=== PATIENT | female | born 1995 | race Two or more races ===

== ENCOUNTER 2018-07-05 03:14 | Inpatient (IN) | payer OTHER ==
[2018-07-05] MEDS ORDERED: Butorphanol 1 MG/ML SDV IVPUSH PRN (03:59)
[2018-07-05] MEDS ORDERED: Sodium Chloride 0.9% 10 ML Syringe FLUSH PRN (03:59)
[2018-07-05] MEDS ORDERED: Water For Irrigation,Sterile 1,000 ML Container IRR PRN (03:59)
[2018-07-05] MEDS ORDERED: Sodium Chloride 0.9% 10 ML SDV IV PRN (03:59)
[2018-07-05] MEDS ORDERED: Sodium Chloride 0.9% 2.5 ML Syringe FLUSH PRN (03:59)
[2018-07-05] MEDS ORDERED: Misoprostol 200 MCG Tab PO PRN (03:59)
[2018-07-05] MEDS ORDERED: Nalbuphine 10 MG/1 ML Vial IVPUSH PRN (03:59)
[2018-07-05] MEDS ORDERED: Tranexamic Acid 1,000 MG in Sodium Chloride 0.9% 100 ML IV PRN (03:59)
[2018-07-05] MEDS ORDERED: Lidocaine 1% 50 ML MDV INJECT PRN (03:59)
[2018-07-05] MEDS ORDERED: Carboprost Tromethamine 250 MCG/1 ML Amp IM PRN (03:59)
[2018-07-05] MEDS ORDERED: Methylergonovine 0.2 MG/1 ML Amp IM PRN (03:59)
[2018-07-05] MEDS ORDERED: Oxytocin/0.9 % Sodium Chloride 30 UNIT/500 ML BAG IV SCH ×2 (04:00→15:30)
[2018-07-05] MEDS ORDERED: Ampicillin 2 GM in Sodium Chloride 0.9% 100 ML IV ONE (04:30)
[2018-07-05] MEDS: Lactated Ringers 1,000 ML IV SCH ×3 (04:32→20:54)
[2018-07-05] MEDS: Ampicillin 1 GM in Sodium Chloride 0.9% 50 ML IV SCH ×4 (08:23→20:54)
[2018-07-05] MEDS ORDERED: ePHEDrine 50 MG/ML SDV ONE (14:21)
[2018-07-05] MEDS ORDERED: Bupivacaine 0.25% 10 ML SDV ONE (14:22)
--- NOTE | 2018-07-05 14:59 | PCM.PREANE ---
Preanesthetic Assessment - Procedure Proposed Procedure: labor epidural - Anesthesia/Transfusion/Family Hx Anesthesia History: Prior Anesthesia Without Reaction (wisdom teeth extraction) Family History of Anesthesia Reaction: No Transfusion History: No Prior Transfusion(s) Additional History: none - Review of Systems Other: Reports: None - Physical Assessment NPO Status Date: 07/05/18 NPO Status Time: 12:00 Height: 1.57 m Weight: 78.925 kg ASA Class: 2 Mental Status: Alert & Oriented x3 Dentition: Reports: Normal Dentition Thyro-Mental Finger Breadths: 3 Mouth Opening Finger Breadths: 3 ROM/Head Extension: Full Lungs: Clear to Auscultation Cardiovascular: Regular Rate - Lab Values: Laboratory Last Values WBC 12.17 K/uL (4.0-11.0) H 07/05/18 04:20 RBC 3.97 M/uL (4.30-5.90) L 07/05/18 04:20 Hgb 11.3 g/dL (12.0-16.0) L 07/05/18 04:20 Hct 33.3 % (36.0-46.0) L 07/05/18 04:20 MCV 83.9 fL (80.0-98.0) 07/05/18 04:20 MCH 28.5 pg (27.0-32.0) 07/05/18 04:20 MCHC 33.9 g/dL (31.0-37.0) 07/05/18 04:20 RDW Std Deviation 40.9 fl (28.0-62.0) 07/05/18 04:20 RDW Coeff of Dayanara 13 % (11.0-15.0) 07/05/18 04:20 Plt Count 228 K/uL (150-400) 07/05/18 04:20 MPV 10.80 fL (7.40-12.00) 07/05/18 04:20 Nucleated RBC % 0.0 /100WBC 07/05/18 04:20 Nucleated RBCs # 0 K/uL 07/05/18 04:20 Blood Type O POSITIVE 07/05/18 04:20 Antibody Screen NEGATIVE 07/05/18 04:20 - Allergies Allergies/Adverse Reactions: Allergies Allergy/AdvReac Type Severity Reaction Status Date / Time No Known Allergies Allergy Verified 07/05/18 03:59 - Acknowledgements Anesthesia Type Planned: Epidural (labor) Pt an Appropriate Candidate for the Planned Anesthesia: Yes Alternatives and Risks of Anesthesia Discussed w Pt/Guardian: Yes Pt/Guardian Understands and Agrees with Anesthesia Plan: Yes PreAnesthesia Questionnaire HEENT History: Reports: None Cardiovascular History: Reports: None Respiratory History: Reports: None Gastrointestinal History: Reports: None Genitourinary History: Reports: None ENGINEERING CONSULTANT History: Reports: : 1 Para: 0 Musculoskeletal History: Reports: None Neurological History: Reports: None Psychiatric History: Reports: None Endocrine/Metabolic History: Reports: None Hematologic History: Reports: None Immunologic History: Reports: None Oncologic (Cancer) History: Reports: None Dermatologic History: Reports: None - Past Surgical History Other Head Surgeries/Procedures: wisdom teeth extraction HEENT Surgical History: Reports: Oral Surgery Other HEENT Surgeries/Procedures: wisdom teeth Cardiovascular Surgical History: Reports: None Respiratory Surgical History: Reports: None GI Surgical History: Reports: None Female Surgical History: Reports: None Male Surgical History: Reports: None Endocrine Surgical History: Reports: None Neurological Surgical History: Reports: None Musculoskeletal Surgical History: Reports: None Oncologic Surgical History: Reports: None Dermatological Surgical History: Reports: None - Past Imaging History Past Imaging History: Reports: None - SUBSTANCE USE Smoking Status *Q: Never Smoker Tobacco Use Within Last Twelve Months: No Second Hand Smoke Exposure: No - CURRENT (IN HOUSE) MEDS Current Meds: Current Medications Butorphanol Tartrate (Stadol) 1 mg IVPUSH Q1H PRN PRN Reason: Pain Last Admin: 07/05/18 08:31 Dose: 1 mg Carboprost Tromethamine (Hemabate Ds) 250 mcg IM ASDIRECTED PRN PRN Reason: Post Hemorrhage Ampicillin Sodium 1 gm/ Sodium (Chloride) 50 mls @ 100 mls/hr IV Q4H [facility] Last Admin: 07/05/18 12:40 Dose: 100 mls/hr Lactated Ringer's (Ringers, Lactated) 1,000 mls @ 150 mls/hr IV ASDIRECTED [facility] Last Admin: 07/05/18 04:32 Dose: 150 mls/hr Oxytocin/Sodium Chloride (Oxytocin 30 Unit/500 Ml-Ns) 30 unit in 500 mls @ 500 mls/hr IV TITRATE [facility] Tranexamic Acid 1,000 mg/ (Sodium Chloride) 110 mls @ 660 mls/hr IV ONETIME PRN PRN Reason: Bleeding Lidocaine HCl (Xylocaine 1%) 50 ml INJECT ONETIME PRN PRN Reason: Laceration repair Methylergonovine Maleate (Methergine) 0.2 mg IM ASDIRECTED PRN PRN Reason: Post Hemorrhage Misoprostol (Cytotec) 200 mcg PO ONETIME PRN PRN Reason: Post Hemorrhage Nalbuphine HCl (Nubain) 10 mg IVPUSH Q1H PRN PRN Reason: Pain (severe 7-10) Sodium Chloride (Saline Flush) 10 ml FLUSH ASDIRECTED PRN PRN Reason: Keep Vein Open Sodium Chloride (Saline Flush) 2.5 ml FLUSH ASDIRECTED PRN PRN Reason: Keep Vein Open Sodium Chloride (Normal Saline) 10 ml IV ASDIRECTED PRN PRN Reason: IV Use Sterile Water (Sterile Water For Irrigation) 1,000 ml IRR ASDIRECTED PRN PRN Reason: delivery Discontinued Medications Bupivacaine HCl (Sensorcaine-Mpf 0.25%) Confirm Administered Dose 10 ml .ROUTE .STK-MED ONE Stop: 07/05/18 14:23 Ephedrine Sulfate (Ephedrine Sulfate) Confirm Administered Dose 50 mg .ROUTE .STK-MED ONE Stop: 07/05/18 14:22 Ampicillin Sodium 2 gm/ Sodium (Chloride) 100 mls @ 200 mls/hr IV ONETIME ONE Stop: 07/05/18 04:59 Last Admin: 07/05/18 04:32 Dose: 200 mls/hr Fentanyl/Bupivacaine HCl (Culpotmz-Gjkav-Vb 2 Mcg/Ml-0.125%) Confirm Administered Dose 100 mls @ as directed .ROUTE .STK-MED ONE Stop: 07/05/18 14:22
[2018-07-05] MEDS ORDERED: Bupivacaine 0.5% 10 ML SDV ONE (23:26)
[2018-07-06] MEDS: Ampicillin 1 GM in Sodium Chloride 0.9% 50 ML IV SCH (00:32)
[2018-07-06] MEDS ORDERED: Acetaminophen 500 MG Tab ONE (04:00)
--- NOTE | 2018-07-06 06:03 | PCM.DEL ---
L & D Note - General Info Date of Service: 07/06/18 Mother's Due Date: 07/10/18 - Delivery Note Labor: Induced by Oxytocin (PROM with induction) Delivery Outcome: Livebirth Delivery Mode: Vacuum Extraction Presentation: Right Occiput Anterior (NOEMI) Nuchal Cord: None Prep: Other Anesthesia Type: Epidural Amniotic Fluid Description: Meconium Stained (terminal) Episiotomy Type: None Laceration: 2nd Degree Suture type: Vicryl Suture size: 3-0 Placenta: Intact, Spontaneous Cord: 3 Vessels Resuscitation Needed: No : Suctioned Score 1 min: 9 Score 5 min: 9 Delivery Comments (Free Text/Narrative):: Liveborn female - General Info Date of Service: 07/06/18 - Patient Data Weight - Most Recent: 78.925 kg Med Orders - Current: Current Medications Butorphanol Tartrate (Stadol) 1 mg IVPUSH Q1H PRN PRN Reason: Pain Last Admin: 07/05/18 08:31 Dose: 1 mg Carboprost Tromethamine (Hemabate Ds) 250 mcg IM ASDIRECTED PRN PRN Reason: Post Hemorrhage Ampicillin Sodium 1 gm/ Sodium (Chloride) 50 mls @ 100 mls/hr IV Q4H [facility] Last Admin: 07/06/18 00:32 Dose: 100 mls/hr Lactated Ringer's (Ringers, Lactated) 1,000 mls @ 150 mls/hr IV ASDIRECTED [facility] Last Admin: 07/05/18 20:54 Dose: 150 mls/hr Oxytocin/Sodium Chloride (Oxytocin 30 Unit/500 Ml-Ns) 30 unit in 500 mls @ 500 mls/hr IV TITRATE [facility] Tranexamic Acid 1,000 mg/ (Sodium Chloride) 110 mls @ 660 mls/hr IV ONETIME PRN PRN Reason: Bleeding Oxytocin/Sodium Chloride (Oxytocin 30 Unit/500 Ml-Ns) 30 unit in 500 mls @ 2 mls/hr IV TITRATE [facility]; Protocol Last Infusion: 07/06/18 00:36 Dose: 14 munits/min, 14 mls/hr Lidocaine HCl (Xylocaine 1%) 50 ml INJECT ONETIME PRN PRN Reason: Laceration repair Methylergonovine Maleate (Methergine) 0.2 mg IM ASDIRECTED PRN PRN Reason: Post Hemorrhage Misoprostol (Cytotec) 200 mcg PO ONETIME PRN PRN Reason: Post Hemorrhage Nalbuphine HCl (Nubain) 10 mg IVPUSH Q1H PRN PRN Reason: Pain (severe 7-10) Sodium Chloride (Saline Flush) 10 ml FLUSH ASDIRECTED PRN PRN Reason: Keep Vein Open Sodium Chloride (Saline Flush) 2.5 ml FLUSH ASDIRECTED PRN PRN Reason: Keep Vein Open Sodium Chloride (Normal Saline) 10 ml IV ASDIRECTED PRN PRN Reason: IV Use Sterile Water (Sterile Water For Irrigation) 1,000 ml IRR ASDIRECTED PRN PRN Reason: delivery Discontinued Medications Acetaminophen (Tylenol Extra Strength) Confirm Administered Dose 1,000 mg .ROUTE .STK-MED ONE Stop: 07/06/18 04:01 Bupivacaine HCl (Sensorcaine-Mpf 0.25%) Confirm Administered Dose 10 ml .ROUTE .STK-MED ONE Stop: 07/05/18 14:23 Bupivacaine HCl (Sensorcaine-Mpf 0.5%) Confirm Administered Dose 10 ml .ROUTE .STK-MED ONE Stop: 07/05/18 23:27 Ephedrine Sulfate (Ephedrine Sulfate) Confirm Administered Dose 50 mg .ROUTE .STK-MED ONE Stop: 07/05/18 14:22 Ampicillin Sodium 2 gm/ Sodium (Chloride) 100 mls @ 200 mls/hr IV ONETIME ONE Stop: 07/05/18 04:59 Last Admin: 07/05/18 04:32 Dose: 200 mls/hr Fentanyl/Bupivacaine HCl (Abdrymzh-Cpcqg-Ff 2 Mcg/Ml-0.125%) Confirm Administered Dose 100 mls @ as directed .ROUTE .STK-MED ONE Stop: 07/05/18 14:22 Fentanyl/Bupivacaine HCl (Aevmvcui-Qfstz-Zo 2 Mcg/Ml-0.125%) Confirm Administered Dose 100 mls @ as directed .ROUTE .STK-MED ONE Stop: 07/05/18 23:26 - Problem List & Annotations (1) PROM with onset of labor within 24 hours, [facility] SN[facility] Code(s): 466363156, 567087842 Code(s): O42.00 - MARGARITA ROM, ONSET LABOR W/N 24 HR OF RUPT, UNSP WEEKS OF GEST Status: Acute Current Visit: Yes (2) Vacuum extraction, delivered, current hospitalization SNOMED Code(s): 474708920 Code(s): O66.5 - ATTEMPTED APPLICATION OF VACUUM EXTRACTOR AND FORCEPS Status: Acute Current Visit: Yes - Problem List Review Problem List Initiated/Reviewed/Updated: Yes - My Orders Last 24 Hours: My Active Orders 07/05/18 15:30 Oxytocin/0.9 % Sodium Chloride [Oxytocin 30 Unit/500 ML-NS] 30 unit in 500 ml IV TITRATE
[2018-07-06] MEDS ORDERED: Bisacodyl 10 MG Supp RECTAL PRN (06:04)
[2018-07-06] MEDS ORDERED: Benzocaine/Menthol 20%-0.5% Spray 78 GM Cannister TOP PRN (06:04)
[2018-07-06] MEDS ORDERED: Ibuprofen 400 MG Tab PO PRN (06:04)
[2018-07-06] MEDS ORDERED: Lanolin 100% Cream 7 GM Tube TOP PRN (06:04)
[2018-07-06] MEDS ORDERED: Acetaminophen 500 MG Tab PO PRN ×2 (06:04)
[2018-07-06] MEDS ORDERED: Witch Hazel Medicated Pads 40/Jar TOP PRN (06:04)
[2018-07-06] MEDS ORDERED: Docusate Sodium 100 MG Cap PO PRN (06:04)
--- NOTE | 2018-07-06 06:56 | OR ---
SURGEON: Whit Cintron M.D. DATE OF PROCEDURE: 07/06/2018 PREOPERATIVE DIAGNOSES: A 39-3/7-week intrauterine , premature rupture of membranes with induction of labor. POSTOPERATIVE DIAGNOSES: A 39-3/7-week intrauterine , premature rupture of membranes with induction of labor. PROCEDURE: Pitocin induction of labor, vacuum-assisted vaginal delivery. ANESTHESIA: Epidural. ESTIMATED BLOOD LOSS: 400 mL. FINDINGS: Liveborn female scores 9 and 9, weighing 3110 g. Normal-appearing placenta was delivered spontaneously. Schultze with 3 vessels and intact. A second-degree perineal laceration was repaired. COMPLICATIONS: None known. DISPOSITION: Mother and baby are in LDR in good condition. BRIEF HISTORY: This is a 22-year-old female, G1, P0. She presents at 39-2/7 weeks' gestation, spontaneous rupture of membranes at approximately 2:30 a.m. She is known to be group B strep positive. She was admitted to Labor and Delivery. She received ampicillin for group B strep prophylaxis. Initially, she had some cervical change from 2 cm up to 3.5 cm, however, beyond this there was minimal cervical change, and therefore, she was started on Pitocin. She did receive an epidural for pain control. Overall, she had category 1 heart tones throughout labor with some episodes of category 2 heart tones. She is known to be group B strep positive. She received multiple doses of ampicillin throughout labor. She progressed to complete. DESCRIPTION OF PROCEDURE: With the patient in dorsal lithotomy position and multiple other positions, she pushed over a 3-1/2 hour time period to a 3+ station. At the 3-hour time point, she was offered a vacuum assistance with risks discussed including a cephalhematoma, scalp laceration, intracranial hemorrhage, and vaginal lacerations. After discussion of risks, she desired to push for an additional time period. However, after another half hour, she did request proceeding with the vacuum-assisted vaginal delivery. The fetus was known to be in the right occiput anterior position. Estimated weight prior to the vacuum was 3300 g. She had a gynecoid pelvis. The catheter had been placed and was removed at the time when the vacuum assistance was initiated, and she was pushing to 3+ station at which time the vacuum was applied. With the patient in the dorsal lithotomy position, under adequate epidural analgesia, the patient had pushed as described above. The vacuum was placed in the midsagittal line with the midpoint of the vacuum 2 cm anterior from the posterior fontanelle, and with maternal expulsive effort over four contractions with one pop-off and one loss of suction due to excessive hair, the head was delivered with vacuum assistance over the perineum with support. The vacuum was removed. The anterior and posterior shoulders were delivered without any difficulty, and the was handed to the mother in the presence of the nurse attending delivery. The was a liveborn female. scores were 9 and 9, weighing 3110 g. After the cord had ceased to pulsate, it was doubly clamped and cut. Cord blood was collected for cord ABGs as well as routine cord blood sampling. Pitocin was initiated after delivery of the infant to assist with delivery. The placenta was delivered spontaneously. Schultze intact with 3 vessels. Upon inspection of the pelvis and perineum, there were no periurethral, vaginal sidewall, cervical, or rectal lacerations. There was a second-degree perineal laceration that was repaired using a onozxh-hq-hnypg suture of 3-0 Vicryl for the deep perineal tissue, a running locked suture of 3- 0 Vicryl for the vaginal mucosa, a more superficial running perineal suture of the same and a running subcuticular suture of the 3-0 Vicryl. The uterus was noted to be somewhat boggy, and she had received Pitocin for greater than 20 hours. She was therefore given Methergine 0.2 mg IM, and with this bleeding was minimal. The fundus was firm. There were no known complications. The infant and mother are in LDR in good condition. KASH / BRITTNEY /[id number]
--- NOTE | 2018-07-06 08:39 | PCM48HPAN ---
Post Anesthesia Note - EVALUATION WITHIN 48HRS OF ANESTHETIC Vital Signs in Normal Range: Yes Patient Participated in Evaluation: Yes Respiratory Function Stable: Yes Airway Patent: Yes Cardiovascular Function Stable: Yes Hydration Status Stable: Yes Pain Control Satisfactory: Yes Nausea and Vomiting Control Satisfactory: Yes Mental Status Recovered: Yes
[2018-07-06] MEDS: Ibuprofen 800 MG Tab PO PRN ×3 (09:01→20:54)
[2018-07-06] MEDS: oxyCODONE 5 MG Tab PO PRN ×2 (17:19→20:54)
[2018-07-07] MEDS: Ibuprofen 800 MG Tab PO PRN ×2 (06:15→13:30)
--- NOTE | 2018-07-07 08:35 | PCM.PNPP ---
- General Info Date of Service: 07/07/18 Functional Status: Reports: Pain Controlled, Tolerating Diet, Ambulating, Urinating - Review of Systems General: Reports: No Symptoms (first two times ambulating was slightly dizzy, now resolved.) HEENT: Reports: No Symptoms Pulmonary: Reports: No Symptoms Cardiovascular: Reports: No Symptoms Gastrointestinal: Reports: No Symptoms Genitourinary: Reports: No Symptoms Musculoskeletal: Reports: No Symptoms Skin: Reports: No Symptoms Neurological: Reports: No Symptoms Psychiatric: Reports: No Symptoms - General Info Date of Service: 07/07/18 - Patient Data Vital Signs - Most Recent: Last Vital Signs Temp 36.8 C 07/07/18 07:45 Pulse 66 07/07/18 07:45 Resp 16 07/07/18 07:45 BP 88/49 L 07/07/18 07:45 Pulse Ox 97 07/07/18 07:45 Weight - Most Recent: 78.925 kg Lab Results - Last 24 Hours: Laboratory Results - last 24 hr 07/07/18 Range/Units 05:05 Hgb 8.8 L (12.0-16.0) g/dL Hct 26.8 L (36.0-46.0) % Med Orders - Current: Current Medications Acetaminophen (Tylenol Extra Strength) 500 mg PO Q4H PRN PRN Reason: Pain Last Admin: 07/06/18 17:20 Dose: 500 mg Acetaminophen (Tylenol Extra Strength) 1,000 mg PO Q4H PRN PRN Reason: Pain Last Admin: 07/07/18 00:50 Dose: 1,000 mg Benzocaine/Menthol (Dermoplast Pain Relief 20%-0.5% [place]) 78 gm TOP ASDIRECTED PRN PRN Reason: Perineal Comfort Measure Bisacodyl (Dulcolax) 10 mg RECTAL ONETIME PRN PRN Reason: Constipation Docusate Sodium (Colace) 100 mg PO BID PRN PRN Reason: Constipation Emollient Ointment (Lansinoh Hpa) 0 gm TOP ASDIRECTED PRN PRN Reason: Sore Nipples Ibuprofen (Motrin) 400 mg PO Q4H PRN PRN Reason: Pain Ibuprofen (Motrin) 800 mg PO Q6H PRN PRN Reason: Pain Last Admin: 07/07/18 06:15 Dose: 800 mg Oxycodone HCl (Oxycodone) 5 mg PO Q2H PRN PRN Reason: Pain Last Admin: 07/06/18 20:54 Dose: 5 mg Witch Susannah (Tucks) 1 pad TOP ASDIRECTED PRN PRN Reason: comfort care Discontinued Medications Acetaminophen (Tylenol Extra Strength) Confirm Administered Dose 1,000 mg .ROUTE .STK-MED ONE Stop: 07/06/18 04:01 Bupivacaine HCl (Sensorcaine-Mpf 0.25%) Confirm Administered Dose 10 ml .ROUTE .STK-MED ONE Stop: 07/05/18 14:23 Bupivacaine HCl (Sensorcaine-Mpf 0.5%) Confirm Administered Dose 10 ml .ROUTE .STK-MED ONE Stop: 07/05/18 23:27 Butorphanol Tartrate (Stadol) 1 mg IVPUSH Q1H PRN PRN Reason: Pain Last Admin: 07/05/18 08:31 Dose: 1 mg Carboprost Tromethamine (Hemabate Ds) 250 mcg IM ASDIRECTED PRN PRN Reason: Post Hemorrhage Ephedrine Sulfate (Ephedrine Sulfate) Confirm Administered Dose 50 mg .ROUTE .STK-MED ONE Stop: 07/05/18 14:22 Ampicillin Sodium 2 gm/ Sodium (Chloride) 100 mls @ 200 mls/hr IV ONETIME ONE Stop: 07/05/18 04:59 Last Admin: 07/05/18 04:32 Dose: 200 mls/hr Ampicillin Sodium 1 gm/ Sodium (Chloride) 50 mls @ 100 mls/hr IV Q4H [facility] Last Admin: 07/06/18 00:32 Dose: 100 mls/hr Lactated Ringer's (Ringers, Lactated) 1,000 mls @ 150 mls/hr IV ASDIRECTED [facility] Last Admin: 07/05/18 20:54 Dose: 150 mls/hr Oxytocin/Sodium Chloride (Oxytocin 30 Unit/500 Ml-Ns) 30 unit in 500 mls @ 500 mls/hr IV TITRATE [facility] Last Admin: 07/06/18 06:26 Dose: 500 mls/hr Tranexamic Acid 1,000 mg/ (Sodium Chloride) 110 mls @ 660 mls/hr IV ONETIME PRN PRN Reason: Bleeding Fentanyl/Bupivacaine HCl (Lwdnhtxt-Gjlzl-Hh 2 Mcg/Ml-0.125%) Confirm Administered Dose 100 mls @ as directed .ROUTE .STK-MED ONE Stop: 07/05/18 14:22 Oxytocin/Sodium Chloride (Oxytocin 30 Unit/500 Ml-Ns) 30 unit in 500 mls @ 2 mls/hr IV TITRATE [facility]; Protocol Last Infusion: 07/06/18 00:36 Dose: 14 munits/min, 14 mls/hr Fentanyl/Bupivacaine HCl (Wqxkuvvx-Auevg-Dt 2 Mcg/Ml-0.125%) Confirm Administered Dose 100 mls @ as directed .ROUTE .STK-MED ONE Stop: 07/05/18 23:26 Lidocaine HCl (Xylocaine 1%) 50 ml INJECT ONETIME PRN PRN Reason: Laceration repair Methylergonovine Maleate (Methergine) 0.2 mg IM ASDIRECTED PRN PRN Reason: Post Hemorrhage Last Admin: 07/06/18 06:27 Dose: 0.2 mg Misoprostol (Cytotec) 200 mcg PO ONETIME PRN PRN Reason: Post Hemorrhage Nalbuphine HCl (Nubain) 10 mg IVPUSH Q1H PRN PRN Reason: Pain (severe 7-10) Sodium Chloride (Saline Flush) 10 ml FLUSH ASDIRECTED PRN PRN Reason: Keep Vein Open Sodium Chloride (Saline Flush) 2.5 ml FLUSH ASDIRECTED PRN PRN Reason: Keep Vein Open Sodium Chloride (Normal Saline) 10 ml IV ASDIRECTED PRN PRN Reason: IV Use Sterile Water (Sterile Water For Irrigation) 1,000 ml IRR ASDIRECTED PRN PRN Reason: delivery - Infant Interaction Infant Disposition, : [place] in Room with Family Interaction: Holding Feeding: Breastfed ; Nursed Well Support Person: - Recovery Exam Fundal Tone: Firm Fundal Level: 1 Fingerbreadths Below Umbilicus Fundal Placement: Midline Lochia Amount: Scant Lochia Color: Rubra/Red Perineum Description: Intact, Minimal Bruising/Swelling Episiotomy/Laceration: Approximated Bladder Status: Voiding Urinary Elimination: Voided - Exam General: Alert, Oriented Lungs: Normal Respiratory Effort Extremities: Normal Inspection, Normal Range of Motion, Non-Tender, Normal Capillary Refill. No: No Pedal Edema (trace) Skin: Warm, Dry, Intact Neurological: No New Focal Deficit - Problem List & Annotations (1) PROM with onset of labor within 24 hours, delivered, cur[facility] hospital[facility] SNOMED Code(s): 921588452, 705650548 Code(s): O42.00 - MARGARITA ROM, ONSET LABOR W/N 24 HR OF RUPT, UNSP WEEKS OF GEST Status: Acute Current Visit: Yes (2) Vacuum extraction, delivered, current hospitalization SNOMED Code(s): 199242911 Code(s): O66.5 - ATTEMPTED APPLICATION OF VACUUM EXTRACTOR AND FORCEPS Status: Acute Current Visit: Yes - Problem List Review Problem List Initiated/Reviewed/Updated: Yes - Assessment Assessment:: PPD#1 after vacuum assisted vaginal delivery. Stable, minimal lochia. Anemia, currently asymptomatic. Was supposed to be on iron during , but could not tolerate it. She thinks she may be able to tolerate it now, as she has taken iron before without any problem. - Plan Plan:: Dismiss to home today. Discharge instructions reviewed.
== END 2018-07-07 16:00 | disposition home or self-care (01) | DRG 807 ==
LOC: MW.OBCHECK 03:14 → MW.OB 03:15 → MW.OBCHECK 03:59 → MW.OB 03:59 → OBSVTOIN 07-06 05:32 → MW.OB 07-06 18:19
PROVIDERS: ADMIT Obstetrics & Gynecology; ATTEND Obstetrics & Gynecology
PROC: 10D07Z6 Extraction of Products of Conception, Vacuum, Via Natural or Artificial Opening (ICD-10-PCS; principal; 2018-07-06)
PROC: 0KQM0ZZ Repair Perineum Muscle, Open Approach (ICD-10-PCS; 2018-07-06)
PROC: 3E033VJ Introduction of Other Hormone into Peripheral Vein, Percutaneous Approach (ICD-10-PCS; 2018-07-06)
DX: O42.013 Preterm premature rupture of membranes, onset of labor within 24 hours of rupture, third trimester (principal); Z37.0 Single live birth; O70.1 Second degree perineal laceration during delivery; Z3A.39 39 weeks gestation of pregnancy; O77.0 Labor and delivery complicated by meconium in amniotic fluid; D64.9 Anemia, unspecified; O99.013 Anemia complicating pregnancy, third trimester
CPT/HCPCS: 36415; 51702; 59020; 59409; 82803; 85014; 85018; 85027; 86850; 86900; 86901; A9270-GY; J0290; J0595; J2210; J2590; J7030; J7050; J7120

== ENCOUNTER 2021-01-27 11:42 | Emergency (ER) | payer OTHER ==
[2021-01-27] MEDS ORDERED: Acetaminophen 500 MG Tab PO ONE (13:27)
[2021-01-27] MEDS ORDERED: Sodium Chloride 0.9% 1,000 ML IV ONE (13:27)
--- NOTE | 2021-01-27 13:31 | EDM.PDOC ---
ED HPI GENERAL MEDICAL PROBLEM - General Chief Complaint: General Stated Complaint: COVID Time Seen by Provider: 01/27/21 11:45 Source of Information: Reports: Patient History Limitations: Reports: No Limitations - History of Present Illness INITIAL COMMENTS - FREE TEXT/NARRATIVE: 25-year-old female past medical history recent COVID-19 diagnosis on January 16 presents for worsening symptoms. Patient notes that she was initially getting better but over the last several days has developed worsening cough, sore throat, scratchy throat, shortness of breath, feeling lightheaded and as if she is going to pass out when she stands up or walks short distances. She also notes that she recently started her menstrual period a bit early and has been bleeding more heavily than baseline. back Pain Score (Numeric/FACES): 8 - Related Data Allergies Allergy/AdvReac Type Severity Reaction Status Date / Time No Known Allergies Allergy Verified 01/27/21 12:55 Home Meds: Home Meds . [No Known Home Meds] 01/27/21 [History] Past Medical History HEENT History: Reports: None Cardiovascular History: Reports: None Respiratory History: Reports: None Gastrointestinal History: Reports: None Genitourinary History: Reports: None [employer] History: Reports: Musculoskeletal History: Reports: None Neurological History: Reports: None Psychiatric History: Reports: None Endocrine/Metabolic History: Reports: None Hematologic History: Reports: None Immunologic History: Reports: None Oncologic (Cancer) History: Reports: None Dermatologic History: Reports: None - Infectious Disease History Infectious Disease History: Reports: Chicken Pox, Novel Coronavirus - Past Surgical History HEENT Surgical History: Reports: Oral Surgery Other HEENT Surgeries/Procedures: wisdom teeth Cardiovascular Surgical History: Reports: None Respiratory Surgical History: Reports: None GI Surgical History: Reports: None Female Surgical History: Reports: None Endocrine Surgical History: Reports: None Neurological Surgical History: Reports: None Musculoskeletal Surgical History: Reports: None Oncologic Surgical History: Reports: None Dermatological Surgical History: Reports: None - Past Imaging History Past Imaging History: Reports: None Social & Family History - Family History Family Medical History: No Pertinent Family History Musculoskeletal: Reports: Arthritis Oncologic: Reports: Other (See Below) Other Oncologic Family History: unknown cancer - Tobacco Use Tobacco Use Status *Q: Never Tobacco User Second Hand Smoke Exposure: No - Caffeine Use Caffeine Use: Reports: Coffee - Recreational Drug Use Recreational Drug Use: No ED ROS GENERAL - Review of Systems Review Of Systems: Comprehensive ROS is negative, except as noted in HPI. ED EXAM, GENERAL - Physical Exam Exam: See Below Exam Limited By: No Limitations General Appearance: Alert, WD/WN, No Apparent Distress Ears: Hearing Grossly Normal Throat/Mouth: Normal Voice, No Airway Compromise Head: Atraumatic, Normocephalic Neck: Normal Inspection Respiratory/Chest: No Respiratory Distress, Lungs Clear, Normal Breath Sounds, No Accessory Muscle Use, Other (Cough throughout exam) Cardiovascular: Normal Peripheral Pulses, No Edema, Tachycardia Extremities: Normal Inspection Neurological: Alert, Normal Cognition Psychiatric: Normal Affect, Normal Mood Skin Exam: Warm, Dry, Intact, Normal Color #1 Interpretation EKG Date: 01/27/21 Time: 13:33 Rhythm: NSR Rate (Beats/Min): 100 [place]: Normal P-Wave: Present QRS: Normal ST-T: Normal QT: Normal RI/PQ Interval: 114 Comparison: NA - No Prior EKG EKG Interpretation Comments: sinus tachy at 100; no ischemic changes Course - Vital Signs Last Recorded V/S: Last Vital Signs Temp 97.6 F 01/27/21 12:55 Pulse 80 01/27/21 15:45 Resp 20 01/27/21 12:55 BP 118/77 01/27/21 15:45 Pulse Ox 94 L 01/27/21 15:45 - Orders/Labs/Meds Orders: Active Orders 24 hr Category Date Time Status Pulse Oximetry [RC] ASDIRECTED Care 01/27/21 13:27 Active CORONAVIRUS COVID-19 BEVERLY [MOLEC] Stat Lab 01/27/21 17:50 Received TROPONIN I [CHEM] Stat Lab 01/27/21 20:00 Ordered Saline Lock Insert [OM.PC] Stat Oth 01/27/21 13:27 Ordered Labs: Laboratory Tests 01/27/21 01/27/21 01/27/21 Range/Units 13:40 13:40 13:40 WBC 7.51 (4.0-11.0) K/uL RBC 4.52 (4.30-5.90) M/uL Hgb 13.2 (12.0-16.0) g/dL Hct 37.8 (36.0-46.0) % MCV 83.6 (80.0-98.0) fL MCH 29.2 (27.0-32.0) pg MCHC 34.9 (31.0-37.0) g/dL RDW Std Deviation 38.3 (28.0-62.0) fl RDW Coeff of Dayanara 13 (11.0-15.0) % Plt Count 357 (150-400) K/uL MPV 9.10 (7.40-12.00) fL Add Manual Diff YES Neutrophils % (Manual) 75 (48.0-80.0) % Band Neutrophils % 1 % Lymphocytes % (Manual) 13 L (16.0-40.0) % Atypical Lymphs % 2 Monocytes % (Manual) 9 (0.0-15.0) % Nucleated RBC % 0.0 /100WBC Absolute Seg Neuts 5.6 (1.4-5.7) Band Neutrophils # 0.1 Lymphocytes # (Manual) 1.0 (0.6-2.4) Monocytes # (Manual) 0.7 (0.0-0.8) Nucleated RBCs # 0 K/uL INR 0.95 APTT 22.3 (18.6-31.3) SEC D-Dimer, Quantitative 6.80 H (0.0-0.50) mg/L FEU Sodium 140 (136-145) mmol/L Potassium 3.9 (3.5-5.1) mmol/L Chloride 100 (98-107) mmol/L Carbon Dioxide 26.6 (21.0-32.0) mmol/L BUN 9 (7.0-18.0) mg/dL Creatinine 0.6 (0.6-1.0) mg/dL Est Cr Clr Drug Dosing 112.38 mL/min Estimated GFR (MDRD) > 60.0 ml/min Glucose 108 H (74-106) mg/dL Calcium 8.5 (8.5-10.1) mg/dL Total Bilirubin 0.6 (0.2-1.0) mg/dL AST 59 H (15-37) IU/L ALT 70 H (14-63) IU/L Alkaline Phosphatase 146 H (46-116) U/L Troponin I 0.158 H* (0.000-0.056) ng/mL B-Natriuretic Peptide (<100) PG/ML Total Protein 7.4 (6.4-8.2) g/dL Albumin 2.8 L (3.4-5.0) g/dL Globulin 4.6 H (2.6-4.0) g/dL Albumin/Globulin Ratio 0.6 L (0.9-1.6) HCG, Qual (NEG) 01/27/21 01/27/21 01/27/21 Range/Units 13:40 13:40 16:13 WBC (4.0-11.0) K/uL RBC (4.30-5.90) M/uL Hgb (12.0-16.0) g/dL Hct (36.0-46.0) % MCV (80.0-98.0) fL MCH (27.0-32.0) pg MCHC (31.0-37.0) g/dL RDW Std Deviation (28.0-62.0) fl RDW Coeff of Dayanara (11.0-15.0) % Plt Count (150-400) K/uL MPV (7.40-12.00) fL Add Manual Diff Neutrophils % (Manual) (48.0-80.0) % Band Neutrophils % % Lymphocytes % (Manual) (16.0-40.0) % Atypical Lymphs % Monocytes % (Manual) (0.0-15.0) % Nucleated RBC % /100WBC Absolute Seg Neuts (1.4-5.7) Band Neutrophils # Lymphocytes # (Manual) (0.6-2.4) Monocytes # (Manual) (0.0-0.8) Nucleated RBCs # K/uL INR APTT (18.6-31.3) SEC D-Dimer, Quantitative (0.0-0.50) mg/L FEU Sodium (136-145) mmol/L Potassium (3.5-5.1) mmol/L Chloride (98-107) mmol/L Carbon Dioxide (21.0-32.0) mmol/L BUN (7.0-18.0) mg/dL Creatinine (0.6-1.0) mg/dL Est Cr Clr Drug Dosing mL/min Estimated GFR (MDRD) ml/min Glucose (74-106) mg/dL Calcium (8.5-10.1) mg/dL Total Bilirubin (0.2-1.0) mg/dL AST (15-37) IU/L ALT (14-63) IU/L Alkaline Phosphatase (46-116) U/L Troponin I 0.248 H* (0.000-0.056) ng/mL B-Natriuretic Peptide 15 (<100) PG/ML Total Protein (6.4-8.2) g/dL Albumin (3.4-5.0) g/dL Globulin (2.6-4.0) g/dL Albumin/Globulin Ratio (0.9-1.6) HCG, Qual NEGATIVE (NEG) Meds: Medications Discontinued Medications Generic Name Dose Route Start Last Admin Trade Name Freq PRN Reason Stop Dose Admin Acetaminophen 1,000 mg 01/27/21 13:27 01/27/21 13:48 Acetaminophen 500 Mg Tab PO 01/27/21 13:28 1,000 mg ONETIME ONE Administration Aspirin 325 mg 01/27/21 17:14 01/27/21 17:31 Aspirin 325 Mg Tab PO 01/27/21 17:15 325 mg ONETIME ONE Administration Dexamethasone 10 mg 01/27/21 16:02 01/27/21 17:32 Dexamethasone 10 Mg/Ml Sdv IVPUSH 01/27/21 16:03 10 mg ONETIME ONE Administration Sodium Chloride 1,000 mls @ 999 mls/hr 01/27/21 13:27 01/27/21 13:49 Normal Saline IV 01/27/21 14:27 999 mls/hr .Bolus ONE Administration Remdesivir 200 mg/ Sodium 250 mls @ 250 mls/hr 01/27/21 17:15 01/27/21 17:55 Chloride IV 01/27/21 18:14 250 mls/hr ONETIME ONE Administration Iopamidol 100 ml 01/27/21 15:24 01/27/21 15:25 Iopamidol 755 Mg/Ml 500 Ml Multipack Bottle IVPUSH 01/27/21 15:25 100 ml ONETIME STA Administration - Re-Assessments/Exams Free Text/Narrative Re-Assessment/Exam: 01/27/21 13:30 We will get labs. Will get CTA imaging to rule out pulmonary embolism and to assess for signs of persistent Covid pneumonia versus superimposed bacterial pneumonia. 01/27/21 14:28 Patient is requiring 2 L nasal cannula to maintain O2 sats above 94% 01/27/21 14:38 Patient with markedly elevated D-dimer and positive troponin. Likely pulmonary embolism vs less likely myocarditis. Will f/u CTA and dispo 01/27/21 16:14 No evidence of pulmonary embolism on CT imaging. Likely myocarditis versus demand ischemia. Will get repeat troponin for disposition. I did reach out to the hospitalist who recommends 10 mg Decadron and remdesivir now and will keep patient here if troponin is not uptrending. She remains well-appearing and with O2 sats in the mid 90s on 2 L nasal cannula. 01/27/21 17:07 Significant rise in repeat troponin; will start process of transferring patient to high level of care. This was recommended by hospitalist Dr. Cash. I did reach out to [facility], [facility], and [facility] who do not have bed availabilities. I did reach out to the transfer center and left a voicemail. [facility] does not have beds. 01/27/21 17:10 [facility] does not have beds 01/27/21 17:11 [facility] also does not have beds. 01/27/21 17:23 Patient is on transfer list with transfer center but they note 2-3 day wait time currently for other patients. 01/27/21 17:29 [facility] patient on waiting list [facility] no beds available 01/27/21 17:31 [facility] does not have beds available 01/27/21 17:31 [facility] does not have beds available 01/27/21 17:32 [facility] does not have beds 01/27/21 17:35 [facility] does not have beds available 01/27/21 17:35 [facility] does not have beds available 01/27/21 17:37 [facility] does not have beds available 01/27/21 17:[address] [facility] does not have beds available 01/27/21 17:51 Patient is on a wait list at [facility] 01/27/21 18:01 Danay Marana did not answer the phone 01/27/21 18:12 [facility] 10min rayna did not answer the phone 01/27/21 18:29 [facility] is not currently accepting out of state transfers for COVID due to overcapacity 01/27/21 18:48 [facility] will call back 01/27/21 18:[address] [facility] [address] Chin agrees to accept patient under his service. Departure - Departure Time of Disposition: 18:53 Disposition: DC/Tfer to Acute Hospital 02 Condition: Fair Clinical Impression: COVID - Discharge Information Referrals: PCP,None [Primary Care Provider] - Forms: ED Department Discharge Critical Care Note - Critical Care Note Total Time (mins): 35 Sepsis Event Note (ED) - Evaluation Sepsis Screening Result: No Definite Risk - Focused Exam Vital Signs: Vital Signs Temp Pulse Resp BP Pulse Ox 01/27/21 15:45 80 118/77 94 L 01/27/21 14:28 82 123/74 94 L 01/27/21 13:58 94 125/76 92 L 01/27/21 13:28 105 H 118/78 92 L 01/27/21 13:05 92 L 01/27/21 12:59 89 L 01/27/21 12:55 97.6 F 108 H 20 112/70 88 L - My Orders Last 24 Hours: My Active Orders 01/27/21 13:27 Pulse Oximetry [RC] ASDIRECTED Saline Lock Insert [OM.PC] Stat 01/27/21 17:50 CORONAVIRUS COVID-19 B[facility] [MOLEC] Stat 01/27/21 20:00 TROPONIN I [CHEM] Stat - Assessment/Plan Last 24 Hours: My Active Orders 01/27/21 13:27 Pulse Oximetry [RC] ASDIRECTED Saline Lock Insert [OM.PC] Stat 01/27/21 17:50 CORONAVIRUS COVID-19 BEVERLY [MOLEC] Stat 01/27/21 20:00 TROPONIN I [CHEM] Stat
[2021-01-27 14:33] LABS: BLOOD UREA NITROGEN,BUN 9 mg/dL (7.0-18.0); CARBON DIOXIDE,CO2 26.6 mmol/L (21.0-32.0); CHLORIDE,CL 100 mmol/L (98-107); GLUCOSE RANDOM 108 mg/dL (74-106); POTASSIUM,K 3.9 mmol/L (3.5-5.1); SODIUM,NA 140 mmol/L (136-145)
[2021-01-27] MEDS ORDERED: Iopamidol 755 MG/ML 500 ML Multipack Bottle IVPUSH STA (15:24)
--- NOTE | 2021-01-27 15:55 | CT ---
INDICATION: Post COVID. Hypoxic. Tachycardia. SOB. Chest pain. Rule out pulmonary embolism. TECHNIQUE: Volumetric helical scanning of the thorax was performed during infusion of 100 cc of Isovue 370 contrast material IV, timing optimized for pulmonary arterial opacification. Coronal and sagittal reconstructions were obtained. COMPARISON: None. FINDINGS: The images are of acceptable quality and demonstrate uniform vascular enhancement within the pulmonary arteries. No pulmonary arterial filling defect is identified. The heart size is normal. Relatively dense, patchy pneumonias are present throughout both lungs. No airway abnormality or pleural effusion is evident. Borderline lymphadenopathy in the nav and mediastinum is noted. Images of the upper abdomen are unremarkable. IMPRESSION: 1. Negative for pulmonary embolism. 2. Relatively dense, patchy pneumonias throughout both lungs. 3. Borderline bilateral hilar and mediastinal lymphadenopathy. Please note that all CT scans at this facility use dose modulation, iterative reconstruction, and/or weight-based dosing when appropriate to reduce radiation dose to as low as reasonably achievable. Dictated by Milan Benton MD @ 01/27/2021 3:54:50 PM (Electronically Signed)
[2021-01-27] MEDS ORDERED: Dexamethasone 10 MG/ML SDV IVPUSH ONE (16:02)
[2021-01-27] MEDS ORDERED: REMDESIVIR 200 MG in Sodium Chloride 0.9% 250 ML IV ONE ×2 (16:03→17:15)
[2021-01-27] MEDS ORDERED: Aspirin 325 MG Tab PO ONE (17:14)
== END 2021-01-27 20:01 ==
LOC: MW.ED 11:42
DX: U07.1 COVID-19 (principal)
CPT/HCPCS: 36415; 71275; 80053; 83880; 84484; 84703; 85025; 85379; 85610; 85730; 87635; 93005; 96374; 99285; A9270; J1100; J7030; J7050; Q9967; U0002